=== PATIENT | female | born 1985 | race Caucasian/White ===

== ENCOUNTER 2019-09-05 00:01 | Inpatient (IN) ==
[2019-09-05] MEDS ORDERED: Ketorolac 15 MG/ML VIAL IVP ONE (00:36)
[2019-09-05] MEDS ORDERED: 0.9 % Sodium Chloride 1,000 ML IVC ONE (00:36)
[2019-09-05] MEDS ORDERED: Ondansetron 4 MG/2 ML VIAL IVP ONE (00:36)
[2019-09-05] MEDS ORDERED: Prochlorperazine 10 MG/2 ML VIAL IVP ONE (00:38)
[2019-09-05 01:06] LABS: Alanine Aminotransferase 213 Units/L (7-52); Albumin 3.5 g/dL (3.5-5.7); Albumin/Globulin Ratio 1.3 (1.1-2.2); Alkaline Phosphatase 64 Units/L (34-104); Aspartate Amino Transferase 113 Units/L (13-39); BUN/Creatinine Ratio 12 (6-26); Bilirubin,Total 0.4 mg/dL (0.3-1.0); Blood Urea Nitrogen 8 mg/dL (6-20); C-Reactive Protein 38 mg/L (Less than 10); Calcium 8.7 mg/dL (8.6-10.3); Carbon Dioxide 25 mEq/L (23-29); Chloride 99 mEq/L (98-107); Globulin 2.8 g/dL (2.4-3.5); Glucose 132 mg/dL (70-105); Osmolality,Calculated 274 (280-300); Potassium 3.7 mEq/L (3.5-5.1); Sodium 132 mEq/L (136-145); Total Protein 6.3 g/dL (6.4-8.9); eGFR For African Americans > 60 (> 60); eGFR For Non-African Americans > 60 (> 60)
[2019-09-05 01:19] LABS: Bilirubin,Urine Negative (Negative); Blood,Urine Negative (Negative); Clarity,Urine Cloudy (Clear); Color,Urine Yellow (Yellow); Glucose,Urine (UA) Normal (Normal); Ketones,Urine Negative (Negative); Leukocyte Esterase,Urine Negative (Negative); Nitrite,Urine Negative (Negative); PH,Urine 6.5 pH Units (5.0-8.0); Protein,Urine Negative (Neg-Trace); Specific Gravity,Urine 1.023 (1.010-1.025); Urobilinogen,Urine Normal (Normal)
[2019-09-05 01:21] LABS: Bacteria,Urine None Seen per hpf (None-Few); Hyaline Casts,Urine None Seen per lpf (None-Few); RBC,Urine 0-3 per hpf (0-3); Squamous Epithelial Cell,Urine Many per lpf (None-Few)
[2019-09-05 01:21] LABS: Basophils % 0.5 %; Eosinophils # 0.1 K/mcL (0.0-0.6); Eosinophils % 0.8 %; Hematocrit 36.1 % (35.3-44.9); Hemoglobin 12.4 g/dL (11.5-15.4); Immature Granulocytes % 0.3 % (0-4); Lymphocytes # 0.9 K/mcL (0.6-4.6); Lymphocytes % 13.9 %; Mean Corpuscular HGB Conc 34.3 g/dL (31.6-35.5); Mean Corpuscular Hemoglobin 30.3 pg (28.0-33.3); Mean Corpuscular Volume 88.3 fL (83.0-100.0); Mean Platelet Volume 9.7 fL (9.4-12.4); Monocytes # 0.4 K/mcL (0.0-1.3); Monocytes % 6.7 %; Neutrophils # 4.9 K/mcL (1.6-8.9); Platelet Count 207 K/mcL (140-400); Red Blood Count 4.09 M/mcL (3.82-4.97); Red Cell Distribution Width 11.8 % (11.5-14.5); Segmented Neutrophils % 77.8 %; White Blood Count 6.3 K/mcL (4.3-11.1)
[2019-09-05 01:39] LABS: Amphetamine Screen,Urine Positive ng/mL (Cutoff=1000); Barbiturate Screen,Urine Negative ng/mL (Cutoff=200); Benzodiazepines Screen,Urine Negative ng/mL (Cutoff=200); Cannabinoid Screen,Urine Negative ng/mL (Cutoff = 50); Cocaine Screen,Urine Negative ng/mL (Cutoff= 300); Opiate Screen,Urine Negative ng/mL (Cutoff=300); Phencyclidine Screen,Urine Negative ng/mL (Cutoff=25)
[2019-09-05] MEDS ORDERED: Lidocaine -MPF 1% 5 ML AMPUL ONE (04:15)
[2019-09-05] MEDS ORDERED: cefTRIAXone 2,000 MG in 0.9 % Sodium Chloride Mini Bag 100 ML IVPB ONE (05:07)
[2019-09-05] MEDS ORDERED: Morphine Sulfate 2 MG/ML SYRINGE IVP ONE (05:08)
[2019-09-05] MEDS ORDERED: Dexamethasone 4 MG/ML VIAL IVP ONE (05:08)
[2019-09-05 05:48] LABS: Glucose,CSF 11 mg/dL (40-70); Total Protein,CSF 161 mg/dL (15-45)
[2019-09-05 06:24] LABS: Basophils,CSF 0 %; Eosinophils,CSF 0 %; Monocytes,CSF 0 %; Other Cells,CSF 0 %
[2019-09-05 06:43] LABS: Appearance,CSF Cloudy (Clear)
[2019-09-05] MEDS ORDERED: Ondansetron 4 MG/2 ML VIAL IVP PRN (07:31)
[2019-09-05] MEDS ORDERED: *HR* Promethazine 25 MG/ML VIAL IVP PRN (07:31)
[2019-09-05] MEDS ORDERED: Naloxone 0.4 MG/ML INJ IVP PRN (07:31)
[2019-09-05] MEDS: Ketorolac 15 MG/ML VIAL IVP PRN ×2 (09:22→18:53)
[2019-09-05] MEDS: 0.9 % Sodium Chloride 1,000 ML IVC SCH (09:27)
[2019-09-05] MEDS: Dexamethasone 10 MG/ML VIAL IVP SCH ×3 (12:50→23:28)
[2019-09-05 14:21] LABS: Red Blood Cell,CSF < 0.002 M/mcL
[2019-09-05] MEDS: *HR* Heparin 5,000 UNIT/ML VIAL SQ SCH ×2 (14:54→21:16)
[2019-09-05 16:37] LABS: Procalcitonin 0.03 ng/mL (0.00-0.15)
[2019-09-05] MEDS ORDERED: CEFTRIAXONE IN IS-OSM DEXTROSE 1 GM/50 ML PIGGYBACK IV SCH ×2 (18:00)
[2019-09-05] MEDS: cefTRIAXone 2,000 MG in Water for inj. (sterile) 20 ML IVP SCH (18:52)
[2019-09-05] MEDS: Acetaminophen 325 MG TABLET PO PRN (21:16)
[2019-09-06 04:45] LABS: Hematocrit 32.7 % (35.3-44.9); Hemoglobin 11.4 g/dL (11.5-15.4); Mean Corpuscular HGB Conc 34.9 g/dL (31.6-35.5); Mean Corpuscular Hemoglobin 30.4 pg (28.0-33.3); Mean Corpuscular Volume 87.2 fL (83.0-100.0); Mean Platelet Volume 9.9 fL (9.4-12.4); Platelet Count 202 K/mcL (140-400); Red Blood Count 3.75 M/mcL (3.82-4.97); Red Cell Distribution Width 11.7 % (11.5-14.5); Segmented Neutrophils % 83.2 %; White Blood Count 5.5 K/mcL (4.3-11.1)
[2019-09-06 04:46] LABS: Basophils % 0.2 %; Immature Granulocytes % 1.1 % (0-4); Lymphocytes # 0.6 K/mcL (0.6-4.6); Lymphocytes % 10.4 %; Monocytes # 0.3 K/mcL (0.0-1.3); Monocytes % 5.1 %; Neutrophils # 4.6 K/mcL (1.6-8.9)
[2019-09-06 04:58] LABS: Alanine Aminotransferase 138 Units/L (7-52); Albumin 3.2 g/dL (3.5-5.7); Albumin/Globulin Ratio 1.2 (1.1-2.2); Alkaline Phosphatase 59 Units/L (34-104); Aspartate Amino Transferase 43 Units/L (13-39); BUN/Creatinine Ratio 20 (6-26); Bilirubin,Total 0.2 mg/dL (0.3-1.0); Blood Urea Nitrogen 13 mg/dL (6-20); Calcium 8.6 mg/dL (8.6-10.3); Carbon Dioxide 23 mEq/L (23-29); Chloride 105 mEq/L (98-107); Globulin 2.6 g/dL (2.4-3.5); Glucose 154 mg/dL (70-105); Osmolality,Calculated 283 (280-300); Potassium 4.1 mEq/L (3.5-5.1); Sodium 135 mEq/L (136-145); Total Protein 5.8 g/dL (6.4-8.9); eGFR For African Americans > 60 (> 60); eGFR For Non-African Americans > 60 (> 60)
[2019-09-06] MEDS: *HR* Heparin 5,000 UNIT/ML VIAL SQ SCH ×3 (05:40→22:23)
[2019-09-06] MEDS: 0.9 % Sodium Chloride 1,000 ML IVC SCH (05:40)
[2019-09-06] MEDS: Dexamethasone 10 MG/ML VIAL IVP SCH (05:43)
[2019-09-06] MEDS: cefTRIAXone 2,000 MG in Water for inj. (sterile) 20 ML IVP SCH ×2 (05:44→18:11)
[2019-09-06 07:03] LABS: Hepatitis B Surface Antibody > 850.00 mIU/mL
[2019-09-06 07:03] LABS: Hepatitis B Surface Antigen Nonreactive (Nonreactive)
[2019-09-06 07:06] LABS: Hepatitis B Surface Antigen Nonreactive (Nonreactive)
[2019-09-06 07:27] LABS: Hepatitis A Antibody IgM Nonreactive (Nonreactive)
[2019-09-06 07:46] LABS: Hepatitis B Core IgM Nonreactive (Nonreactive)
[2019-09-06 11:16] LABS: Hepatitis C Virus Antibody Reactive (Nonreactive)
[2019-09-06] MEDS: Acetaminophen 325 MG TABLET PO PRN (14:26)
[2019-09-06] MEDS: Ketorolac 15 MG/ML VIAL IVP PRN ×2 (14:31→23:59)
[2019-09-07 05:22] LABS: Basophils % 0.4 %; Eosinophils # 0.1 K/mcL (0.0-0.6); Eosinophils % 0.7 %; Hematocrit 33.1 % (35.3-44.9); Hemoglobin 11.1 g/dL (11.5-15.4); Immature Granulocytes % 1.1 % (0-4); Lymphocytes # 1.9 K/mcL (0.6-4.6); Lymphocytes % 25.4 %; Mean Corpuscular HGB Conc 33.5 g/dL (31.6-35.5); Mean Corpuscular Hemoglobin 29.8 pg (28.0-33.3); Mean Corpuscular Volume 88.7 fL (83.0-100.0); Mean Platelet Volume 9.8 fL (9.4-12.4); Monocytes # 0.5 K/mcL (0.0-1.3); Platelet Count 273 K/mcL (140-400); Red Blood Count 3.73 M/mcL (3.82-4.97); Segmented Neutrophils % 65.4 %; White Blood Count 7.6 K/mcL (4.3-11.1)
[2019-09-07] MEDS: *HR* Heparin 5,000 UNIT/ML VIAL SQ SCH ×3 (05:27→21:22)
[2019-09-07] MEDS: cefTRIAXone 2,000 MG in Water for inj. (sterile) 20 ML IVP SCH ×2 (05:31→18:05)
[2019-09-07 05:40] LABS: BUN/Creatinine Ratio 31 (6-26); Blood Urea Nitrogen 21 mg/dL (6-20); Calcium 8.1 mg/dL (8.6-10.3); Carbon Dioxide 24 mEq/L (23-29); Chloride 107 mEq/L (98-107); Glucose 91 mg/dL (70-105); Osmolality,Calculated 285 (280-300); Potassium 3.5 mEq/L (3.5-5.1); Sodium 136 mEq/L (136-145); eGFR For African Americans > 60 (> 60); eGFR For Non-African Americans > 60 (> 60)
[2019-09-07 08:44] LABS: HSV 2 Glycoprotein G IgG CSF 0.01 IV (<=0.89)
[2019-09-07] MEDS: Ketorolac 15 MG/ML VIAL IVP PRN (09:57)
[2019-09-07] MEDS: Dexamethasone 10 MG/ML VIAL IVP SCH ×3 (10:46→21:22)
[2019-09-08] MEDS: Dexamethasone 10 MG/ML VIAL IVP SCH ×4 (04:07→21:21)
[2019-09-08] MEDS: cefTRIAXone 2,000 MG in Water for inj. (sterile) 20 ML IVP SCH ×2 (05:48→17:12)
[2019-09-08] MEDS: *HR* Heparin 5,000 UNIT/ML VIAL SQ SCH ×3 (05:48→21:21)
[2019-09-08 06:59] LABS: Basophils % 0.1 %; Hematocrit 38.1 % (35.3-44.9); Immature Granulocytes % 2.2 % (0-4); Lymphocytes # 0.7 K/mcL (0.6-4.6); Mean Corpuscular HGB Conc 33.9 g/dL (31.6-35.5); Mean Corpuscular Hemoglobin 30.2 pg (28.0-33.3); Mean Corpuscular Volume 89.2 fL (83.0-100.0); Mean Platelet Volume 9.4 fL (9.4-12.4); Monocytes # 0.3 K/mcL (0.0-1.3); Monocytes % 3.2 %; Neutrophils # 7.4 K/mcL (1.6-8.9); Platelet Count 362 K/mcL (140-400); Red Blood Count 4.27 M/mcL (3.82-4.97); Segmented Neutrophils % 86.5 %; White Blood Count 8.5 K/mcL (4.3-11.1)
[2019-09-08 07:00] LABS: Hemoglobin 12.9 g/dL (11.5-15.4)
[2019-09-08 07:18] LABS: BUN/Creatinine Ratio 28 (6-26); Blood Urea Nitrogen 16 mg/dL (6-20); Calcium 8.7 mg/dL (8.6-10.3); Carbon Dioxide 26 mEq/L (23-29); Chloride 101 mEq/L (98-107); Glucose 134 mg/dL (70-105); Osmolality,Calculated 287 (280-300); Potassium 4.3 mEq/L (3.5-5.1); Sodium 137 mEq/L (136-145); eGFR For African Americans > 60 (> 60); eGFR For Non-African Americans > 60 (> 60)
[2019-09-09] MEDS: Dexamethasone 10 MG/ML VIAL IVP SCH ×4 (03:59→21:35)
[2019-09-09] MEDS: cefTRIAXone 2,000 MG in Water for inj. (sterile) 20 ML IVP SCH ×2 (05:15→18:18)
[2019-09-09] MEDS: *HR* Heparin 5,000 UNIT/ML VIAL SQ SCH ×3 (05:15→21:35)
[2019-09-09] MEDS ORDERED: Aminoglycoside Consult 1 EACH MC ONE (08:48)
[2019-09-09 14:01] LABS: HSV 1 Glycoprotein G IgG CSF 4.12 IV (<=0.89)
[2019-09-09] MEDS: Nicotine 2 MG GUM BC PRN (15:01)
[2019-09-09 16:23] LABS: HSV Source CSF
[2019-09-09] MEDS: Ketorolac 15 MG/ML VIAL IVP PRN (18:25)
[2019-09-09] MEDS: 0.9 % Sodium Chloride 1,000 ML IVC SCH (20:00)
[2019-09-10] MEDS: cefTRIAXone 2,000 MG in Water for inj. (sterile) 20 ML IVP SCH ×2 (05:51→17:37)
[2019-09-10] MEDS: *HR* Heparin 5,000 UNIT/ML VIAL SQ SCH ×3 (05:52→23:10)
[2019-09-10] MEDS: Dexamethasone 10 MG/ML VIAL IVP SCH ×2 (05:52→10:43)
[2019-09-10 06:34] LABS: Hematocrit 37.9 % (35.3-44.9); Hemoglobin 12.9 g/dL (11.5-15.4); Mean Corpuscular Hemoglobin 30.2 pg (28.0-33.3); Mean Corpuscular Volume 88.8 fL (83.0-100.0); Platelet Count 372 K/mcL (140-400); Red Blood Count 4.27 M/mcL (3.82-4.97); Red Cell Distribution Width 12.1 % (11.5-14.5); White Blood Count 12.6 K/mcL (4.3-11.1)
[2019-09-10 06:54] LABS: BUN/Creatinine Ratio 38 (6-26); Blood Urea Nitrogen 25 mg/dL (6-20); Calcium 8.7 mg/dL (8.6-10.3); Carbon Dioxide 27 mEq/L (23-29); Chloride 101 mEq/L (98-107); Glucose 121 mg/dL (70-105); Osmolality,Calculated 288 (280-300); Potassium 4.4 mEq/L (3.5-5.1); Sodium 136 mEq/L (136-145); eGFR For African Americans > 60 (> 60); eGFR For Non-African Americans > 60 (> 60)
[2019-09-10] MEDS: Acetaminophen 325 MG TABLET PO PRN ×3 (10:42→23:11)
[2019-09-10] MEDS: Nicotine 2 MG GUM BC PRN (14:29)
[2019-09-11 05:06] LABS: Hematocrit 38.9 % (35.3-44.9); Mean Corpuscular HGB Conc 33.4 g/dL (31.6-35.5); Mean Corpuscular Volume 89.8 fL (83.0-100.0); Mean Platelet Volume 9.1 fL (9.4-12.4); Platelet Count 338 K/mcL (140-400); Red Blood Count 4.33 M/mcL (3.82-4.97); Red Cell Distribution Width 12.1 % (11.5-14.5); White Blood Count 10.6 K/mcL (4.3-11.1)
[2019-09-11 05:19] LABS: BUN/Creatinine Ratio 37 (6-26); Blood Urea Nitrogen 22 mg/dL (6-20); Calcium 8.3 mg/dL (8.6-10.3); Carbon Dioxide 27 mEq/L (23-29); Chloride 101 mEq/L (98-107); Glucose 89 mg/dL (70-105); Osmolality,Calculated 283 (280-300); Potassium 4.4 mEq/L (3.5-5.1); Sodium 135 mEq/L (136-145); eGFR For African Americans > 60 (> 60); eGFR For Non-African Americans > 60 (> 60)
[2019-09-11] MEDS: *HR* Heparin 5,000 UNIT/ML VIAL SQ SCH ×3 (05:21→21:00)
[2019-09-11] MEDS: cefTRIAXone 2,000 MG in Water for inj. (sterile) 20 ML IVP SCH ×2 (05:22→17:02)
[2019-09-11 05:36] LABS: Lymphocytes # 2.1 K/mcL (0.6-4.6); Monocytes # 1.1 K/mcL (0.0-1.3); Neutrophils # 7.2 K/mcL (1.6-8.9)
[2019-09-11 05:37] LABS: Platelet Estimate Normal (Normal)
[2019-09-11] MEDS: Nicotine 2 MG GUM BC PRN (14:19)
[2019-09-11] MEDS: Acetaminophen 325 MG TABLET PO PRN ×2 (14:19→21:01)
[2019-09-11] MEDS: traMADol 50 MG TABLET PO PRN (18:07)
[2019-09-12] MEDS: cefTRIAXone 2,000 MG in Water for inj. (sterile) 20 ML IVP SCH (06:27)
[2019-09-12] MEDS: *HR* Heparin 5,000 UNIT/ML VIAL SQ SCH ×2 (06:27→13:20)
[2019-09-12 11:29] VITALS: BP 91/55
[2019-09-12] MEDS: traMADol 50 MG TABLET PO PRN (13:24)
[2019-09-12] MEDS ORDERED: Acetaminophen 325 MG TABLET PO PRN (14:50)
[2019-09-12] MEDS ORDERED: traMADol 50 MG TABLET PO PRN (14:51)
== END 2019-09-12 15:55 | DRG 720 ==
LOC: 3ANU 00:01 → EMEROOARM 00:01 → SUATTDRO 07:40 → 3ANU 08:18
PROVIDERS: ADMIT Internal Medicine; ATTEND Internal Medicine